=== PATIENT | female | born 1975 | race African-American/Black ===

== ENCOUNTER 2019-08-08 18:56 | Emergency (ER) | payer MEDICAID, OTHER ==
[~2019-08-08] VITALS: Ht 167.6 cm; Wt 64.0 kg
[2019-08-08 20:03] LABS: EOSINOPHILS % 1.9 % (0.0-5.0); HEMATOCRIT. 35.2 % (36.0-48.0); HEMOGLOBIN. 11.3 g/dL (12.0-16.0); LYMPHOCYTES % 50.8 % (20.0-50.0); MEAN CORPUSCULAR HEMOGLOBIN 27.6 pg (28.0-32.0); MEAN PLATELET VOLUME 7.4 fl (7.4-10.4); MONOCYTES % 9.5 % (2.0-8.0); NEUTROPHILS % 36.8 % (40.0-76.0); PLATELET 344 x1000/uL (130-400); RED CELL DISTRIBUTION WIDTH 13.6 % (11.6-14.6)
[2019-08-08 20:09] LABS: CHLORIDE 108 mEq/L (98-107)
[2019-08-08 20:13] LABS: ETHANOL BLOOD < 10 mg/dL
[2019-08-08 20:32] LABS: CLARITY URINE CLEAR (CLEAR); COLOR URINE YELLOW (YELLOW); KETONES URINE TRACE (NEGATIVE); LEUKOCYTE ESTERASE URINE 1+ (NEGATIVE); NITRITE URINE NEGATIVE (NEGATIVE); OCCULT BLOOD URINE NEGATIVE (NEGATIVE); PROTEIN URINE TRACE (NEGATIVE); SPECIFIC GRAVITY URINE 1.036 (1.005-1.030)
[2019-08-08 20:52] LABS: *BARBITURATES SCREEN URINE NEGATIVE (NEGATIVE)
[2019-08-08 20:53] LABS: *BENZODIAZEPINES SCREEN URINE NEGATIVE (NEGATIVE); *COCAINE SCREEN URINE NEGATIVE (NEGATIVE); METHADONE URINE SCREEN NEGATIVE (NEGATIVE); OPIATES URINE SCREEN NEGATIVE (NEGATIVE); PHENCYCLIDINE URINE SCREEN NEGATIVE (NEGATIVE)
[2019-08-08 20:56] LABS: *AMPHETAMINES SCREEN URINE PRESUMTIVE POSITIVE (NEGATIVE)
[2019-08-08 20:57] LABS: CANNABINOID URINE SCREEN PRESUMTIVE POSITIVE (NEGATIVE)
[2019-08-09 08:28] VITALS: BP 121/75
== END 2019-08-09 09:05 | disposition home or self-care (01) ==
LOC: ER 19:01
DX: Z76.0 Encounter for issue of repeat prescription (principal); F20.9 Schizophrenia, unspecified; Z59.0 Homelessness; Z75.1 Person awaiting admission to adequate facility elsewhere
CPT/HCPCS: 36415; 80053; 80305; 80320; 81003; 81025; 85025; 99285; G0480

== ENCOUNTER 2020-07-29 12:20 | Emergency (ER) | payer MEDICAID, OTHER ==
[~2020-07-29] VITALS: Ht 167.6 cm; Wt 63.0 kg
[2020-07-29] MEDS ORDERED: SODIUM CHLORIDE 0.9% 1,000 ML IV ONE (13:30)
[2020-07-29 13:50] LABS: CHLORIDE 108 mEq/L (98-107)
[2020-07-29 16:35] VITALS: BP 116/74
[2020-07-30] MEDS ORDERED: ACET650T37 MT (04:00)
== END 2020-07-29 17:06 | disposition home or self-care (01) ==
LOC: ER 12:20
DX: R42 Dizziness and giddiness (principal); F17.200 Nicotine dependence, unspecified, uncomplicated; Z86.59 Personal history of other mental and behavioral disorders; Z98.890 Other specified postprocedural states
CPT/HCPCS: 36415; 80053; 93005; 96360; 96361; 99284; J7030; Z7610

== ENCOUNTER 2020-07-30 01:58 | Emergency (ER) | payer MEDICAID, OTHER ==
[~2020-07-30] VITALS: Ht 167.6 cm; Wt 61.0 kg
[2020-07-30 02:00] VITALS: BP 116/81
[2020-07-30] MEDS ORDERED: ACETAMINOPHEN 325MG TABLET PO ONE (02:45)
[2020-07-30 03:16] LABS: CLARITY URINE CLOUDY (CLEAR); COLOR URINE YELLOW (YELLOW); KETONES URINE NEGATIVE (NEGATIVE); LEUKOCYTE ESTERASE URINE 2+ (NEGATIVE); NITRITE URINE NEGATIVE (NEGATIVE); OCCULT BLOOD URINE NEGATIVE (NEGATIVE); PH URINE 6.5 (4.5-8.0); PROTEIN URINE NEGATIVE (NEGATIVE); SPECIFIC GRAVITY URINE 1.022 (1.005-1.030)
[2020-07-30] MEDS ORDERED: ACET650T37 MT (04:00)
== END 2020-07-30 04:23 | disposition home or self-care (01) ==
LOC: ER 01:58
DX: M54.5 Low back pain (principal); M54.2 Cervicalgia; R03.0 Elevated blood-pressure reading, without diagnosis of hypertension; F25.0 Schizoaffective disorder, bipolar type
CPT/HCPCS: 81003; 81025; 99283

== ENCOUNTER 2020-07-30 16:13 | Emergency (ER) | payer OTHER ==
[~2020-07-30] VITALS: Ht 170.2 cm; Wt 65.0 kg
[~2020-07-30 16:13] MED LIST: ACET650T37 MT
[2020-07-30] MEDS ORDERED: SODIUM CHLORIDE 0.9% 1,000 ML IV ONE (17:15)
[2020-07-30 19:14] LABS: BASOPHILS % 0.8 % (0.0-2.0); EOSINOPHILS % 2.5 % (0.0-5.0); HEMATOCRIT. 33.7 % (36.0-48.0); LYMPHOCYTES % 42.7 % (20.0-50.0); MEAN CORPUSCULAR HEMOGLOBIN 27.2 pg (28.0-32.0); MEAN CORPUSCULAR VOLUME 83.4 fL (81.0-99.0); MONOCYTES % 10.9 % (2.0-8.0); NEUTROPHILS % 43.1 % (40.0-76.0); PLATELET 326 x1000/uL (130-400); RED BLOOD CELL COUNT 4.04 mill/uL (4.2-5.4); RED CELL DISTRIBUTION WIDTH 14.1 % (11.6-14.6)
[2020-07-30 19:15] LABS: CLARITY URINE CLEAR (CLEAR); COLOR URINE YELLOW (YELLOW); KETONES URINE NEGATIVE (NEGATIVE); LEUKOCYTE ESTERASE URINE 1+ (NEGATIVE); NITRITE URINE NEGATIVE (NEGATIVE); OCCULT BLOOD URINE NEGATIVE (NEGATIVE); PROTEIN URINE NEGATIVE (NEGATIVE); SPECIFIC GRAVITY URINE 1.019 (1.005-1.030)
[2020-07-30 19:20] LABS: CHLORIDE 109 mEq/L (98-107)
[2020-07-30 19:24] LABS: ETHANOL BLOOD < 10 mg/dL
[2020-07-30 19:38] LABS: *BARBITURATES SCREEN URINE NEGATIVE (NEGATIVE); *BENZODIAZEPINES SCREEN URINE NEGATIVE (NEGATIVE); *COCAINE SCREEN URINE NEGATIVE (NEGATIVE)
[2020-07-30 19:39] LABS: CANNABINOID URINE SCREEN NEGATIVE (NEGATIVE); OPIATES URINE SCREEN NEGATIVE (NEGATIVE); PHENCYCLIDINE URINE SCREEN NEGATIVE (NEGATIVE)
[2020-07-30 19:41] LABS: METHADONE URINE SCREEN NEGATIVE (NEGATIVE)
[2020-07-30 19:47] LABS: *AMPHETAMINES SCREEN URINE PRESUMTIVE POSITIVE (NEGATIVE)
[2020-07-31 03:36] VITALS: BP 132/78
== END 2020-07-31 04:00 | disposition home or self-care (01) ==
LOC: ER 16:13
DX: F15.188 Other stimulant abuse with other stimulant-induced disorder (principal); F25.0 Schizoaffective disorder, bipolar type
CPT/HCPCS: 36415; 80048; 80305; 80320; 81003; 81025; 85025; 96360; 96361; 99285; J7030; G0480